=== PATIENT | male | born 1995 | race American Indian/Alaskan Native ===

== ENCOUNTER 2022-07-12 15:54 | Emergency (ER) | payer OTHER ==
[~2022-07-12] VITALS: Ht 172.7 cm; Wt 81.7 kg
== END 2022-07-12 18:59 | disposition home or self-care (01) ==
LOC: ED 15:54
DX: Z77.098 Contact with and (suspected) exposure to other hazardous, chiefly nonmedicinal, chemicals (principal); F43.10 Post-traumatic stress disorder, unspecified
CPT/HCPCS: 99283